=== PATIENT | male | born 1980 | race Caucasian/White ===

== ENCOUNTER 2018-07-06 20:21 | Emergency (ER) | payer OTHER, SELFPAY ==
[2018-07-06 20:25] VITALS: BP 141/92; PULSE 110; RESP 18; TEMP 37.8; O2SAT 100; BMI 25.7
--- NOTE | 2018-07-06 20:31 | DI.RAD.S_ITS ---
PROCEDURE: XR FINGER RT MIN 2V INDICATIONS: injury with laceration TECHNIQUE: AP hand, 2 views of the fourth finger(s) acquired. COMPARISON: None. FINDINGS: There is a distal shaft fracture of the middle phalanx of the fourth digit. There is mild flexion deformity of the DIP joint. There is a crush injury of the distal tuft of the distal phalanx. No other fractures or dislocations. IMPRESSION: Distal shaft fracture of middle phalanx of fourth digit, distal tuft fracture of distal phalanx, mild flexion deformity at the DIP joint. Dictated by: Yaw Beaulieu M.D. on 07/06/2018 at 21:13 Approved by: Yaw Beaulieu M.D. on 07/06/2018 at 21:17
--- NOTE | 2018-07-06 21:59 | ED_ITS ---
HPI - Wound/Laceration General Chief Complaint: Wound/Laceration Stated Complaint: Laceration on finger Time Seen by Provider: 07/06/18 20:43 Source: patient and EMS Mode of arrival: ambulatory Limitations: no limitations History of Present Illness HPI narrative: Patient is a 38-year-old white male who presents with right 4th finger injury. He was at work he works a fire patrol/ paper cutting machine operator, they are doing a training exercise they feel the tank water and has a metal around it. More like a crush injury he thought it was initially falling off it is not falling off. He does have a laceration on the dorsal side over the PIP. Neurovascularly intact. He is right-hand dominant Tetanus up-to-date Onset (ago): minute(s) Related Data Previous Rx's Medication Instructions Recorded cephalexin [Keflex] 500 mg PO QID #21 cap 07/06/18 hydrocodone-acetaminophen [[place]] 1 tab PO Q4-6H PRN #10 tab 07/06/18 Allergies Allergy/AdvReac Type Severity Reaction Status Date / Time No Known Drug Allergies Allergy Verified 07/06/18 20:30 Review of Systems Review of Systems GENERAL: Denies chills,fever HEENT: Denies throat pain RESPIRATORY: Denies dyspnea, cough, wheezing CARDIOVASCULAR: Denies chest pain, palpitations GASTROINTESTINAL: Denies nausea, vomiting MUSCULOSKELETAL: Denies extremity pain, injury SKIN: See HPI NEUROLOGIC: Denies weakness, dizziness, headache, numbness 8 point review of systems is negative except for those stated above and HPI PFSH Medical History Patient denies significant medical history (Acute) Social History Smoking Status: Former smoker Social History Smoking Status: Former smoker Exam Initial Vital Signs Initial Vital Signs: Vital Signs Temperature 100.0 F H 07/06/18 20:25 Pulse Rate 110 H 07/06/18 20:25 Respiratory Rate 18 07/06/18 20:25 Blood Pressure 141/92 H 07/06/18 20:25 Pulse Oximetry 100 07/06/18 20:25 GENERAL: Well-appearing, well-nourished and in no acute distress. CARDIOVASCULAR: peripheral pulses in tact, cap refill <2 sec RESPIRATORY: No respiratory distress, speaks in full sentences without difficulty EXTREMITIES: Normal range of motion, no clubbing or edema. Neurovascularly intact NEUROLOGICAL: Cranial nerves II through XII grossly intact. Normal gait and speech. SKIN: Warm, dry, no petechiae, no rashes or lesions. Skin Hand L/R Back: 1. A 3 cm laceration. Finger held in flexion unable to extend the DIP 2. Nail has been removed from nail groove. Procedures Laceration Repair Laceration 1: Side (If applicable): right (4th Finger laceration) Size (cm): 3 Description: linear Depth: simple, single layer Pre-repair: wound explored and irrigated extensively Skin layer closed with: nylon Size (cm): 4-0 Number of sutures: 3 Technique: simple, interrupted Laceration 2: Side (If applicable): right (Nail bed) Size (cm): 2 Description: linear Depth: simple, single layer Pre-repair: wound explored Skin layer closed with: vicryl Size (cm): 4-0 Number of sutures: 2 Technique: simple, interrupted Nerve Block Nerve Block 1: Local Anesthetic: lidocaine 1% and with bicarb Amount of anesthesia used (mL): 5 Side: right Nerve Blocks: digital Procedure Successful: Yes Patient Tolerated Procedure: Well Complications: none Orthopedic Splinting/Casting Injury #1: Side: right (4th finger) Upper Extremity Immobilizer: aluminum form splint Post splinting neuro exam: intact Post splinting vascular exam: intact Placed by: Nursing Course Orders Ordered: ED Orders 07/06/18 20:31 XR finger RT min 2V Stat Discontinued Medications Cefazolin Sodium (Keflex) 1 bottle MIS SEEINSTR ONE Stop: 07/06/18 22:21 Last Admin: 07/06/18 22:33 Dose: 1 bottle Vital Signs - 8 hr 07/06/18 20:25 07/06/18 22:46 Temperature 100.0 F H 98 F Pulse Rate 110 H 93 H Respiratory Rate 18 16 Blood Pressure 141/92 H 134/70 Pulse Oximetry 100 99 MDM - Wound/Laceration Imaging Data right finger x-ray: Radiologist's impression: PROCEDURE: XR FINGER RT MIN 2V INDICATIONS: injury with laceration TECHNIQUE: AP hand, 2 views of the fourth finger(s) acquired. COMPARISON: None. FINDINGS: There is a distal shaft fracture of the middle phalanx of the fourth digit. There is mild flexion deformity of the DIP joint. There is a crush injury of the distal tuft of the distal phalanx. No other fractures or dislocations. IMPRESSION: Distal shaft fracture of middle phalanx of fourth digit, distal tuft fracture of distal phalanx, mild flexion deformity at the DIP joint. Dictated by: Yaw Beaulieu M.D. on 07/06/2018 at 21:13 MDM Narrative Medical decision making narrative: The patient is unable to extend at the DIP it is held in flexion. I cannot see the tendon based on the laceration. I discussed case with Dr. Dong of Orthopedics who states that it would be very difficult to cut the extensor tendon in that specific location. He agrees with splinting and outpatient follow-up. The patient is put on antibiotics for open fracture. Placed in splint. Discharge Plan Departure Patient Disposition: Home Clinical Impression: Laceration of finger of right hand Qualifiers: Encounter type: initial encounter Finger: ring finger Damage to nail status: with damage Foreign body presence: without foreign body Qualified Code(s): S6 1.314A - Laceration without foreign body of right ring finger with damage to nail, initial encounter Fracture of finger Qualifiers: Encounter type: initial encounter Finger: ring finger Fracture type: open Phalanx: distal Fracture alignment: displaced Laterality: right Qualified Code(s): S62.634B - Displaced fracture of distal phalanx of right ring finger, initial encounter for open fracture Discharge Date/Time: 07/06/18 22:47 Interventions: ED Discharge Assessment Last Done: 07/06/18 22:46 Instructions: DI for Laceration Repair -- Complex, DI for Fracture Activity Restrictions/Additional Instructions: *You have been diagnosed with right 4th finger fracture and laceration. *What to do: I do have concern that you have a possible tendon laceration. Orthopedics wanted to examine you before that decision is made. Keep splint on. Black sutures will need to be removed in about 7 days *Continue to take medications as directed Keflex 500 mg 4 times a day for 1 week [place] 1 tablet every 6 hours only if needed severe pain *Follow up with your primary care provider in 2-3 days, call Orthopedics tomorrow to schedule follow-up appointment *Return to ER if you should have redness, pus, swelling or any new, worsening or concerning symptoms CONTROLLED SUBSTANCE DISCHARGE (Narcotoic/benzodiazepine/Flexeril/Phenergan) 1. You have been prescribed narcotic medications, it does have acetaminophen/Tylenol/paracetamol in it so do not take extra Tylenol or Tylenol containing products 2. Please understand that we cannot provide further refills of narcotics, benzo diazepines or controlled substances through the ED and her pain management will need to be through your provider. 3. While on these medications you cannot drive or operate heavy machinery. 4. You cannot sign legal documents or perform any duties such as this. 5. As long as you're taking opiate pain medications he should also be taking a stool softener such as Colace, Dulcolax, MiraLAX or prune juice, to help avoid constipation. Prescriptions: New hydrocodone-acetaminophen [[place]] 5-325 mg tablet 1 tab PO Q4-6H PRN (Reason: pain) Qty: 10 RF: 0 cephalexin [Keflex] 500 mg capsule 500 mg PO QID Qty: 21 RF: 0 Referrals: [facility] [Provider Group] Kellie Em ARNP [Primary Care Provider] -
[2018-07-06] MEDS: cephALEXin 250 MG PREPACK 1 BOTTLE MISC (22:33)
[2018-07-06 22:46] VITALS: BP 134/70; PULSE 93; RESP 16; TEMP 36.6; O2SAT 99
== END 2018-07-06 22:47 | disposition home or self-care (01) ==
PROVIDERS: Emergency Provider Emergency Medicine; Family Provider Nurse Practitioner Family; PCP Nurse Practitioner Family
DX: S62.634B Displaced fracture of distal phalanx of right ring finger, initial encounter for open fracture (principal); Y99.0 Civilian activity done for income or pay
CPT/HCPCS: 12002; 29130; 64450; 73140; 99283; 99284